=== PATIENT | male | born 1960 | race Caucasian/White ===

== ENCOUNTER → 2019-01-25 16:38 | Outpatient (CLI) | payer OTHER, SELFPAY ==
--- NOTE | 2019-01-25 16:57 | EKG12_ITS ---
Test Reason : PRE OP Blood Pressure : / mmHG Vent. Rate : 082 BPM Atrial Rate : 082 BPM P-R Int : 176 ms QRS Dur : 092 ms QT Int : 378 ms P-R-T Axes : 031 012 049 degrees QTc Int : 441 ms Normal sinus rhythm Normal ECG Confirmed by VANGIE ADAMS, REMY ([id number]), dictionary editor ADRIAN HAWKINS ([id number]) on 01/29/2019 1:22:31 PM Referred By: Ni Woodruff Confirmed By:REMY VENCES MD
[2019-01-25 17:32] LABS: Hematocrit 46.2 % (40-54); Hemoglobin 16.7 g/dl (13.0-16.5); Mean Corp Hgb Conc 36.1 g/gl (32-36); Mean Corpuscular Hgb 32.4 pg (27.0-32.0); Mean Corpuscular Volume 89.5 fL (80-94); Mean Platelet Vol. 10.3 fl (6.2-12.0); Platelet Count 116 K/mm3 (150-450); RBC Distribution Width CV 12.6 % (11.6-14.6); Red Blood Count 5.16 M/mm3 (4.6-6.2); White Blood Count 6.9 K/mm3 (4.4-11.0)
[2019-01-25 17:35] LABS: Scan Indicated on CBC? Y/N NO
[2019-01-25 17:36] LABS: Anion Gap 8 (5-15); BUN 13 mg/dL (7-18); Calcium,Total 9.2 mg/dL (8.5-10.1); Chloride 106 mmol/L (98-107); Creatinine, Serum 0.76 mg/dL (0.70-1.30); EST Glomerular Filtration Rate 110 mL/min (>60); Est Glom Filt Rate - Afr Amer 133 mL/min (>60); Glucose 133 mg/dL (74-106); Sodium Level 140 mmol/L (136-145)
== END ==
PROVIDERS: Referring Provider Physician Assistant; Visit Provider Physician Assistant
DX: Z01.810 Encounter for preprocedural cardiovascular examination (principal); I10 Essential (primary) hypertension
CPT/HCPCS: 36415; 80048; 85027; 93005